=== PATIENT | male | born 1965 | race Caucasian/White ===

== ENCOUNTER 2017-07-15 11:12 | Emergency (ER) | payer OTHER ==
[~2017-07-15] VITALS: Ht 180.3 cm; Wt 100.0 kg
[2017-07-15 11:12] VITALS: BP 147/108
[2017-07-15] MEDS ORDERED: QUET1TAB8 (11:20)
[2017-07-15] MEDS ORDERED: LAMI1TAB9 PO (11:20)
--- NOTE | 2017-07-15 12:15 | REP ---
LEFT WRIST SERIES, FOUR VIEWS: There is no evidence of an acute fracture, dislocation or intrinsic bone disease. IMPRESSION: No fracture or dislocation. Signed by Cleve Jauregui MD 07/16/2017 04:26 P
== END 2017-07-15 13:00 | disposition home or self-care (01) ==
LOC: M ED 11:12
DX: M65.842 Other synovitis and tenosynovitis, left hand (principal); I10 Essential (primary) hypertension; K76.0 Fatty (change of) liver, not elsewhere classified; Z79.899 Other long term (current) drug therapy

== ENCOUNTER 2019-10-01 12:15 | Emergency (ER) | payer OTHER ==
[~2019-10-01] VITALS: Ht 180.3 cm; Wt 104.0 kg
[~2019-10-01 12:15] MED LIST: LAMI1TAB9 PO; QUET1TAB8
[2019-10-01] MEDS ORDERED: ISOVUE-370 76% 100ML VIAL (Q9967) As Ordered ONE (12:45)
[2019-10-01] MEDS ORDERED: ASPIRIN 81 MG CHEW TABLET PO ONE (12:45)
[2019-10-01] MEDS ORDERED: ONDANSETRON 4MG/2ML VIAL (J2405) IV ONE (12:45)
[2019-10-01 12:55] LABS: BASO % 0.8 % (0.0-1.0); EOS # 0.2 10^3/uL (0.0-0.5); EOS % 3.2 % (0.0-3.0); HEMATOCRIT 50.5 % (42.0-52.0); HEMOGLOBIN 16.1 g/dl (13.5-17.5); LYMPH % 37.1 % (24.0-44.0); MEAN CORPUSCULAR HEMOGLOBIN 28.5 pg (27.0-33.0); MEAN CORPUSCULAR HGB CONC 31.9 g/dl (32.0-36.5); MEAN CORPUSCULAR VOLUME 89.5 fl (80.0-96.0); MONO # 0.6 10^3/uL (0.0-0.8); MONO % 10.3 % (0.0-5.0); NEUTROPHILS # 2.6 10^3/uL (1.5-8.5); NEUTROPHILS % 48.2 % (36.0-66.0); PLATELET COUNT, AUTOMATED 184 10^3/uL (150-450); RED BLOOD COUNT 5.64 10^6/uL (4.30-6.10); WHITE BLOOD COUNT 5.3 10^3/uL (4.0-10.0)
[2019-10-01] MEDS ORDERED: MULTCAP PO (12:57)
[2019-10-01] MEDS ORDERED: OMEP1CAP73 PO (12:57)
[2019-10-01] MEDS ORDERED: ATOR40TA75 PO (12:57)
[2019-10-01] MEDS ORDERED: OMEG10002 PO (12:57)
[2019-10-01] MEDS ORDERED: RA B1TAB8 PO (12:57)
[2019-10-01] MEDS ORDERED: LAMI50TA2 PO (12:57)
[2019-10-01] MEDS ORDERED: LORA1TAB4 PO (12:57)
[2019-10-01] MEDS ORDERED: LAMI200T2 PO (12:57)
[2019-10-01 13:06] LABS: INR 0.92; PARTIAL THROMBOPLASTIN TIME 28.7 SECONDS (25.0-38.4); PROTHROMBIN TIME 12.1 SECONDS (11.8-14.0)
[2019-10-01 13:22] LABS: BLOOD UREA NITROGEN 19 MG/DL (7-18); CALCIUM LEVEL 9.4 MG/DL (8.5-10.1); CARBON DIOXIDE LEVEL 28 MEQ/L (21-32); CHLORIDE LEVEL 109 MEQ/L (98-107); CK-MB VALUE MASS 4.6 NG/ML (<3.6); CPK CREATINE PHOSPHOKINASE 348 U/L (39-308); CREATININE FOR GFR 1.36 MG/DL (0.70-1.30); GLOMERULAR FILTRATION RATE 58.6 (>56); GLUCOSE, FASTING 98 MG/DL (70-100); MB/CK RELATIVE INDEX 1.32 (< OR =4); POTASSIUM SERUM 4.4 MEQ/L (3.5-5.1); SODIUM LEVEL 143 MEQ/L (136-145); TROPONIN I < 0.02 NG/ML (< 0.10)
--- NOTE | 2019-10-01 13:41 | REP ---
CHEST, SINGLE VIEW: There is no evidence of acute infiltrate. No pleural effusion is seen. The heart is normal in size. The mediastinal silhouette is unremarkable. The visualized osseous structures are intact. IMPRESSION: No acute pulmonary disease. Electronically Signed by Cleve Jauregui MD 10/02/2019 03:18 P
--- NOTE | 2019-10-01 15:02 | REP ---
CT PULMONARY ANGIOGRAM: WITH IV CONTRAST. HISTORY: Chest pain, rule out pulmonary embolus. COMPARISON STUDIES: Comparison is made with today's chest x-ray. CONTRAST DOSE: 75 mL of Isovue-[address] TECHNIQUE: Helical scanning is acquired and overlapping 1.5 mm and contiguous 3 mm axial images are reformatted. In addition, maximum intensity projection and multiplanar re-formation images are generated in sagittal and coronal imaging projections. CT PULMONARY ANGIOGRAPHIC FINDINGS: There is good opacification in the pulmonary arterial tree. There is no vessel cutoff or filling defect to suggest pulmonary embolism. The thoracic aorta shows no evidence of aneurysm or dissection. 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 There is no evidence of hilar or mediastinal mass or adenopathy. No pleural or pericardial effusion is seen. No focal infiltrate is noted. There are granulomatous lymph node calcifications in the left hilus. There is a granulomatous calcification in the left lower lobe. No significant pulmonary nodule is appreciated. No significant bony abnormality is seen. There is moderate to marked diffuse fatty infiltration of the liver with areas of fat sparing near the gallbladder. Liver parenchyma is isointense with the lumen of the gallbladder. No adrenal lesion is seen. The visualized upper abdominal structures are unremarkable. IMPRESSION: No CT evidence of pulmonary embolus. Moderate to marked diffuse fatty infiltration of the liver. Granulomatous lymph node calcifications left hilus. Bovine arch anomaly noted incidentally. Otherwise, no acute disease. Electronically Signed by Brian Hayes MD 10/02/2019 05:19 A
[2019-10-01 15:15] LABS: ALBUMIN 4.2 GM/DL (3.2-5.2); ALT/SGPT 42 U/L (12-78); BILIRUBIN,DIRECT 0.4 MG/DL (0.0-0.2); BILIRUBIN,TOTAL 2.1 MG/DL (0.2-1.0); FREE T4 0.99 NG/DL (0.76-1.46); LIPASE 162 U/L (73-393); NT-PRO BNP 36 PG/ML (<125); TOTAL PROTEIN 7.5 GM/DL (6.4-8.2)
[2019-10-01 17:14] LABS: CK-MB VALUE MASS 3.5 NG/ML (<3.6); CPK CREATINE PHOSPHOKINASE 241 U/L (39-308); MB/CK RELATIVE INDEX 1.45 (< OR =4); TROPONIN I < 0.02 NG/ML (< 0.10)
[2019-10-01 18:00] VITALS: BP 130/74
--- NOTE | 2019-10-02 22:15 | ECGEPIP ---
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
--- NOTE | 2019-10-02 22:21 | ECGEPIP ---
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
== END 2019-10-01 18:13 | disposition home or self-care (01) ==
LOC: M ED 12:15
DX: R07.9 Chest pain, unspecified (principal); R06.02 Shortness of breath; I10 Essential (primary) hypertension; E78.5 Hyperlipidemia, unspecified; Z79.899 Other long term (current) drug therapy; Z88.5 Allergy status to narcotic agent; Z88.8 Allergy status to other drugs, medicaments and biological substances; Z87.891 Personal history of nicotine dependence
CPT/HCPCS: 36415; 71045; 71275; 80048; 80076; 82550; 82553; 83690; 83880; 84439; 84443; 84484; 85025; 85610; 85730; 93005; 93041; 94760; 96374; 99285; J2405; Q9967

== ENCOUNTER → 2020-01-09 | Outpatient (CLI) | payer OTHER ==
[~2020-01-09] MED LIST changes: +ATOR40TA75 PO; +LAMI200T2 PO; +LAMI50TA2 PO; +LORA1TAB4 PO; +MULTCAP PO; +OMEG10002 PO; +OMEP1CAP73 PO; +QUET100T2; -QUET1TAB8; +RA B1TAB8 PO
--- NOTE | 2020-01-10 20:05 | SLEEPCENT ---
DATE OF PROCEDURE: 01/09/2020 ORDERED BY: JERMAN Reeder Nocturnal polysomnography was performed for evaluation of sleep physiology. 8 hours and 2 minutes of data were reviewed. There were 298.5 minutes of sleep identified. Sleep latency was normal at 22.5 minutes. Rapid eye movement (REM) latency was prolonged at 264.5 minutes. Sleep architecture showed fragmentation and poor progression. Overall sleep efficiency was 62.6%. The patient's electrocardiogram showed a sinus rhythm with an average heart rate of 60 beats per minute. EEG showed normal waveforms for awake and sleep. There were 420 respiratory events identified of 10 seconds in duration or greater for an apnea-hypopnea index of 84.4. The events were primarily obstructive, 30 mixed and central apneas were seen. Events were not exclusive to sleep stage nor body posture. Arousals from respiratory events occurred 43.8 times per hour. Oxygen desaturations were seen into the 80s. There was some limb activity but limb movement arousal index was 0.4. IMPRESSION: Severe obstructive sleep apnea syndrome (G47.33). Apnea-hypopnea index 84.4. RECOMMENDATIONS: The patient should be encouraged to return to the sleep disorder center at their earliest convenience. In the interim, alcohol and sedative avoidance should be practiced and caution exercised during operation of motor vehicles.
== END ==
LOC: M SLEEP 20:00
PROVIDERS: ATTEND Nurse Practitioner Family
DX: G47.33 Obstructive sleep apnea (adult) (pediatric) (principal)

== ENCOUNTER → 2020-02-15 | Outpatient (CLI) | payer OTHER ==
--- NOTE | 2020-02-24 11:48 | SLEEPCENT ---
DATE OF STUDY: 02/15/2020 ORDERED BY: Analy Bishop Nocturnal polysomnography was performed for the titration of pressure therapy in this patient with severe obstructive sleep apnea syndrome and apnea-hypopnea index of 84.4. For testing, the patient was fit with a ResMed Air Touch full face mask of medium size and 4 cm of water pressure were applied to the circuit and the lights were extinguished. 6 hours and 54 minutes of data were reviewed There were 321 minutes of sleep identified. Sleep latency was normal at 10.5 minutes. REM latency was mildly delayed at 102 minutes. Sleep architecture improved over the course of the study. Overall sleep efficiency was 78.6% and there were 4 REM cycles noted. The patient's electrocardiogram showed a sinus rhythm with an average heart rate of 64 beats per minute. Electroencephalogram (EEG) showed reasonably normal wave forms for wake and sleep. Respiratory events were best palliated with C-PAP at a pressure +11. There was minimal activity noted in the limb leads. Limb movement arousal index however was 9.2. IMPRESSION: Obstructive sleep apnea syndrome (G47.33). RECOMMENDATION: Nightly use of pressure therapy at 11 cm of water.
== END ==
LOC: M SLEEP 20:00
PROVIDERS: ATTEND Nurse Practitioner Family
DX: G47.33 Obstructive sleep apnea (adult) (pediatric) (principal)

== ENCOUNTER → 2020-09-19 | Outpatient (CLI) | payer SELFPAY | LOC: M LABSMTC 13:25 | PROVIDERS: ATTEND Pediatrics | DX: Z20.828 Contact with and (suspected) exposure to other viral communicable diseases (principal) ==

== ENCOUNTER 2021-02-23 07:18 | Emergency (ER) | payer OTHER ==
[~2021-02-23] VITALS: Ht 180.3 cm; Wt 110.2 kg
[2021-02-23] MEDS ORDERED: LORA1TAB4 PO (07:33)
[2021-02-23] MEDS ORDERED: AMLO1TAB24 PO (07:33)
[2021-02-23] MEDS ORDERED: LISI40TA4 PO (07:33)
[2021-02-23] MEDS ORDERED: LAMO100T80 PO (07:33)
[2021-02-23] MEDS ORDERED: MONT10TA10 PO (07:33)
[2021-02-23] MEDS ORDERED: GUAI100L6 PO (07:33)
[2021-02-23] MEDS ORDERED: ALBU83IN NEB (07:33)
--- NOTE | 2021-02-23 08:27 | REP ---
INDICATION: chest pain COMPARISON: 10/01/2019 TECHNIQUE: Portable AP view of the chest FINDINGS: The mediastinum and cardiac silhouette are stable and within normal limits for portable technique. The lung man are clear without acute consolidation, effusion, or pneumothorax. Skeletal structures are intact. IMPRESSION: No acute cardiopulmonary process appreciated. <Electronically signed by Denis Castillo > 02/23/21 [id number]
--- NOTE | 2021-02-23 08:28 | REP ---
INDICATION: right shoulder pain w ROM COMPARISON: None. TECHNIQUE: Internal rotation, external rotation, and Y view. FINDINGS: No acute fracture or dislocation. The acromioclavicular and glenohumeral joints are intact. No periarticular calcifications or degenerative changes are appreciated. Sub acromial space is normal. Surrounding soft tissues are unremarkable. IMPRESSION: Normal right shoulder radiographs. <Electronically signed by Denis Castillo > 02/23/21 [id number]
[2021-02-23] MEDS ORDERED: KETOROLAC 60MG 2ML VIAL IM ONE (09:05)
[2021-02-23] MEDS ORDERED: NAPR-837 PO (09:07)
--- NOTE | 2021-02-23 09:36 | ECGEPIP ---
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
[2021-02-23 10:00] VITALS: BP 157/88
== END 2021-02-23 10:12 | disposition home or self-care (01) ==
LOC: M ED 07:18
DX: R07.9 Chest pain, unspecified (principal); M25.511 Pain in right shoulder; J44.9 Chronic obstructive pulmonary disease, unspecified; I10 Essential (primary) hypertension; K21.9 Gastro-esophageal reflux disease without esophagitis; F43.10 Post-traumatic stress disorder, unspecified; F33.9 Major depressive disorder, recurrent, unspecified; E78.5 Hyperlipidemia, unspecified; Z79.899 Other long term (current) drug therapy; Z88.5 Allergy status to narcotic agent; Z88.8 Allergy status to other drugs, medicaments and biological substances; Z87.891 Personal history of nicotine dependence
CPT/HCPCS: 36415; 71045; 73030; 84484; 93005; 96372; 99284; J1885

== ENCOUNTER 2021-12-21 15:45 | Emergency (ER) | payer OTHER ==
[~2021-12-21] VITALS: Ht 180.3 cm; Wt 113.6 kg
[~2021-12-21 15:45] MED LIST changes: +ALBU83IN NEB; +AMLO1TAB24 PO; +GUAI100L6 PO; +LAMO100T80 PO; +LISI40TA4 PO; +MONT10TA97 PO; +NAPR-837 PO
[2021-12-21] MEDS ORDERED: ONDANSETRON 4MG/2ML VIAL IV PRN (16:40)
[2021-12-21] MEDS ORDERED: MECLIZINE 25 MG TABLET PO ONE ×2 (16:40→21:05)
[2021-12-21] MEDS ORDERED: ACETAMINOPHEN TAB 650MG DOSE (2X325MG) PO ONE ×2 (17:00→21:05)
[2021-12-21] MEDS ORDERED: WARF-23 PO ×2 (17:46→18:47)
[2021-12-21] MEDS ORDERED: ENOX100I3 SC (17:46)
[2021-12-21] MEDS ORDERED: ATIV1TAB10 PO (17:46)
[2021-12-21] MEDS ORDERED: LAMO200T3 PO (17:46)
[2021-12-21] MEDS ORDERED: OMEP-173 PO (17:46)
[2021-12-21] MEDS ORDERED: CYCL-707 PO (17:46)
[2021-12-21] MEDS ORDERED: LORazepam 2 MG/ML VIAL IV STA (17:47)
[2021-12-21 18:13] LABS: BLOOD UREA NITROGEN 17 MG/DL (7-18); CALCIUM LEVEL 8.8 MG/DL (8.5-10.1); CARBON DIOXIDE LEVEL 28 MEQ/L (21-32); CHLORIDE LEVEL 108 MEQ/L (98-107); CREATININE FOR GFR 0.95 MG/DL (0.70-1.30); GLOMERULAR FILTRATION RATE > 60.0 (>56); GLUCOSE, FASTING 74 MG/DL (70-100); POTASSIUM SERUM 4.4 MEQ/L (3.5-5.1); SODIUM LEVEL 141 MEQ/L (136-145)
[2021-12-21] MEDS ORDERED: ATOR80TA59 PO (18:47)
[2021-12-21] MEDS ORDERED: CYCL5TAB PO (18:47)
[2021-12-21] MEDS ORDERED: AMLO1TAB25 PO (18:47)
[2021-12-21] MEDS ORDERED: LAMO100T80 PO ×2 (18:47)
[2021-12-21] MEDS ORDERED: HOME MED LIST COMPLETE! XX SCH (18:50)
[2021-12-21] MEDS ORDERED: MECL1TAB31 PO (21:07)
[2021-12-21] MEDS ORDERED: ONDA4TAB6 PO (21:07)
[2021-12-21 21:45] VITALS: BP 141/90
== END 2021-12-21 21:55 | disposition home or self-care (01) ==
LOC: M ED 15:45
DX: R51.9 Headache, unspecified (principal); J45.909 Unspecified asthma, uncomplicated; I10 Essential (primary) hypertension; E78.5 Hyperlipidemia, unspecified; K21.9 Gastro-esophageal reflux disease without esophagitis; K75.81 Nonalcoholic steatohepatitis (NASH); Z86.16 Personal history of COVID-19; Z79.899 Other long term (current) drug therapy; Z79.01 Long term (current) use of anticoagulants; Z88.5 Allergy status to narcotic agent; Z88.8 Allergy status to other drugs, medicaments and biological substances; F12.20 Cannabis dependence, uncomplicated
CPT/HCPCS: 70450; 70544; 70551; 80048; 96374; 96375; 99284; J2060; J2405

== ENCOUNTER 2022-07-20 05:47 | Emergency (ER) | payer OTHER ==
[~2022-07-20 05:47] MED LIST changes: +ALBU2.5V10 NEB; -ALBU83IN NEB; +AMLO1TAB25 PO; +ATIV1TAB10 PO; +ATOR80TA59 PO; +CYCL-707 PO; +CYCL5TAB PO; +ENOX100I3 SC; +LAMO200T3 PO; +MECL1TAB31 PO; +OMEP-173 PO; +ONDA4TAB6 PO; +WARF-23 PO
[2022-07-20 06:20] LABS: BASO % 0.5 % (0.0-1.0); EOS # 0.2 10^3/uL (0.0-0.5); EOS % 2.7 % (0.0-3.0); HEMATOCRIT 44.6 % (42.0-52.0); HEMOGLOBIN 14.8 g/dl (13.5-17.5); LYMPH # 1.5 10^3/uL (1.5-5.0); LYMPH % 19.9 % (24.0-44.0); MEAN CORPUSCULAR HEMOGLOBIN 28.9 pg (27.0-33.0); MEAN CORPUSCULAR HGB CONC 33.2 g/dl (32.0-36.5); MEAN CORPUSCULAR VOLUME 87.1 fl (80.0-96.0); MONO # 0.7 10^3/uL (0.0-0.8); MONO % 9.3 % (2.0-8.0); NEUTROPHILS % 66.9 % (36.0-66.0); PLATELET COUNT, AUTOMATED 179 10^3/uL (150-450); RED BLOOD COUNT 5.12 10^6/uL (4.30-6.10); WHITE BLOOD COUNT 7.5 10^3/uL (4.0-10.0)
[2022-07-20 06:31] LABS: INR 0.87
[2022-07-20 06:53] LABS: RSV AMPLIFICATION NEGATIVE (NEGATIVE)
[2022-07-20 07:05] LABS: CK-MB VALUE MASS 4.8 NG/ML (<3.6); MB/CK RELATIVE INDEX 1.85 (< OR =4)
[2022-07-20 07:10] LABS: ALBUMIN 3.5 GM/DL (3.2-5.2); ALT/SGPT 40 U/L (12-78); BILIRUBIN,DIRECT 0.3 MG/DL (0.0-0.2); BILIRUBIN,TOTAL 1.9 MG/DL (0.2-1.0); BLOOD UREA NITROGEN 19 MG/DL (7-18); CALCIUM LEVEL 8.3 MG/DL (8.5-10.1); CARBON DIOXIDE LEVEL 25 MEQ/L (21-32); CHLORIDE LEVEL 106 MEQ/L (98-107); CREATININE FOR GFR 0.99 MG/DL (0.70-1.30); GLOMERULAR FILTRATION RATE > 60.0 (>56); GLUCOSE, FASTING 201 MG/DL (70-100); LIPASE 141 U/L (73-393); NT-PRO BNP 15 PG/ML (<125); POTASSIUM SERUM 3.8 MEQ/L (3.5-5.1); SODIUM LEVEL 137 MEQ/L (136-145); TOTAL PROTEIN 6.7 GM/DL (6.4-8.2)
[2022-07-20 08:16] LABS: CK-MB VALUE MASS 4.7 NG/ML (<3.6); MB/CK RELATIVE INDEX 1.9 (< OR =4)
[2022-07-20] MEDS ORDERED: KETOROLAC 30 MG/ML 1ML VIAL IV ONE (08:25)
[2022-07-20 09:11] VITALS: BP 152/94
== END 2022-07-20 09:36 | disposition home or self-care (01) ==
LOC: M ED 05:47
DX: R07.89 Other chest pain (principal); I10 Essential (primary) hypertension; E78.5 Hyperlipidemia, unspecified; K21.9 Gastro-esophageal reflux disease without esophagitis; J44.9 Chronic obstructive pulmonary disease, unspecified; Z86.16 Personal history of COVID-19; Z88.5 Allergy status to narcotic agent; Z79.899 Other long term (current) drug therapy; Z79.51 Long term (current) use of inhaled steroids
CPT/HCPCS: 71045; 80048; 80076; 82550; 82553; 83690; 83880; 84443; 84484; 85025; 85610; 87631; 93005; 93041; 94760; 96374; 99285; J1885

== ENCOUNTER → 2022-09-01 | Outpatient (CLI) | payer OTHER | LOC: M LABSMTC 11:18 | PROVIDERS: ATTEND Anesthesiology | DX: Z01.812 Encounter for preprocedural laboratory examination (principal); Z11.52 Encounter for screening for COVID-19 ==

== ENCOUNTER 2022-09-04 10:05 | Day surgery (SDC) | payer OTHER ==
[~2022-09-04] VITALS: Ht 180.3 cm; Wt 108.0 kg
[~2022-09-04 10:05] MED LIST changes: +NS 1,000 ML IV ONE
[2022-09-04] MEDS ORDERED: LIDOCAINE 2% 100MG/5ML SDV (FOR ANES.) As Ordered ONE (10:45)
[2022-09-04] MEDS ORDERED: propofoL 200 MG/20 ML VIAL As Ordered ONE (10:45)
[2022-09-04 12:05] VITALS: BP 180/99
== END 2022-09-04 12:12 | disposition home or self-care (01) ==
LOC: M OPP 10:05
PROVIDERS: ATTEND Internal Medicine Gastroenterology
DX: Z12.11 Encounter for screening for malignant neoplasm of colon (principal); Z86.010 Personal history of colon polyps; D12.6 Benign neoplasm of colon, unspecified; K64.0 First degree hemorrhoids; K57.30 Diverticulosis of large intestine without perforation or abscess without bleeding; Z79.02 Long term (current) use of antithrombotics/antiplatelets; Z79.52 Long term (current) use of systemic steroids; Z79.82 Long term (current) use of aspirin; Z79.899 Other long term (current) drug therapy; Z88.5 Allergy status to narcotic agent; Z88.8 Allergy status to other drugs, medicaments and biological substances; Z91.040 Latex allergy status; Z87.891 Personal history of nicotine dependence; G47.30 Sleep apnea, unspecified; E78.5 Hyperlipidemia, unspecified; I65.01 Occlusion and stenosis of right vertebral artery; K76.0 Fatty (change of) liver, not elsewhere classified; F43.10 Post-traumatic stress disorder, unspecified; F31.9 Bipolar disorder, unspecified

== ENCOUNTER → 2023-01-07 | Outpatient (CLI) | payer OTHER ==
[~2023-01-07] MED LIST changes: -NS 1,000 ML IV ONE
== END ==
LOC: M SOG 08:19
PROVIDERS: ATTEND Orthopaedic Surgery
DX: M17.0 Bilateral primary osteoarthritis of knee (principal)